=== PATIENT | male | born 1955 | race Caucasian/White ===

== ENCOUNTER 2018-09-24 11:49 | Day surgery (SDC) | payer OTHER ==
[~2018-09-24] VITALS: Ht 175.3 cm; Wt 88.6 kg
[2018-09-24 13:02] VITALS: BP 128/83
[2018-09-24] MEDS ORDERED: [UNRECOGNIZED DRUG - OTHER] PO (13:17)
[2018-09-24] MEDS ORDERED: ASPI-496 PO (13:17)
[2018-09-24] MEDS ORDERED: VALS1TAB26 PO (13:17)
[2018-09-24] MEDS ORDERED: MAGN400T36 PO (13:17)
[2018-09-24] MEDS ORDERED: FLUT9.9S NAS (13:17)
[2018-09-24] MEDS ORDERED: OMEP-110 PO (13:17)
[2018-09-24] MEDS ORDERED: MIDAZOLAM 1 MG/ML, 5ML ONE (13:41)
[2018-09-24] MEDS ORDERED: FENTANYL PF 100 MCG/2ML ONE (13:41)
[2018-09-24] MEDS ORDERED: VERAPAMIL 2.5 MG/ML, 2ML ONE (13:41)
[2018-09-24] MEDS ORDERED: TICAGRELOR 90 MG TABLET ONE (13:41)
[2018-09-24] MEDS ORDERED: BIVALIRUDIN 250 MG ONE (13:41)
[2018-09-24] MEDS ORDERED: HEPARIN 1,000 UNITS/ML, 10ML ONE (13:42)
[2018-09-24] MEDS ORDERED: LIDOCAINE-MPF 1%, 5ML ONE (13:42)
[2018-09-24] MEDS ORDERED: ROSU20TA2 PO (15:09)
== END 2018-09-24 16:07 | disposition home or self-care (01) ==
LOC: CACL 11:49
PROVIDERS: ATTEND Internal Medicine Cardiovascular Disease
DX: I25.110 Atherosclerotic heart disease of native coronary artery with unstable angina pectoris (principal); I25.84 Coronary atherosclerosis due to calcified coronary lesion; I25.83 Coronary atherosclerosis due to lipid rich plaque; I10 Essential (primary) hypertension; Z91.010 Allergy to peanuts; Z88.8 Allergy status to other drugs, medicaments and biological substances; Z91.018 Allergy to other foods
CPT/HCPCS: 93458; 99156; C1769; C1894; J1644; J2250; J3010; Q9967; J0583